=== PATIENT | male | born 1940 | race Caucasian/White ===

== ENCOUNTER 2024-02-28 08:30 | Emergency (ER) | payer MEDICARE, BC, SELFPAY ==
[2024-02-28 08:32] VITALS: BP 138/88
[2024-02-28 08:38] VITALS: BP 140/81
[2024-02-28 08:43] VITALS: BMI 25.6
--- NOTE | 2024-02-28 09:07 | ED.GENMED ---
History of Present Illness
General
Chief Complaint: Fall
Source: patient and spouse
Exam Limitations: none
Time Seen by Provider: 02/28/24 08:38
Nursing documentation reviewed up to this point in time: agreed with
History of Present Illness
History of Present Illness:
83-year-old male with past ministry of hypertension hyperlipidemia and CKD presenting to the emergency department today after he got tripped up walking to his bathroom landed directly on his left shoulder. Did not hit his head did not lose
consciousness no neck pain no numbness or weakness all of his discomfort is to the left shoulder itself. No numbness or weakness otherwise.
Past History
Past History
ED Past Medical History: Other (hyperlipidemia)
ED Past Surgical History: Orthopedic (b/l carpal tunnel)
Patient has exhibited threatening behavior?: No
PSI?: No
Social History
Tobacco: Non-smoker
Alcohol: Occasional
Drug: None
Personal:
Living: with family
Employment: Retired
Review of Systems
Review of Systems
Allergies reviewed?: Yes
All Other Systems: ROS reviewed and negative except as documented in HPI and ROS
Phy Exam
Physical Exam
Physical Exam:
GENERAL: Alert , in no apparent distress
EYE: pupils equal and reactive
NECK: Supple, no significant adenopathy.
ENT: o/p clr, mmm.
CARDIAC: Regular rate and rhythm .
LUNGS: Clear breath sounds bilaterally, no acute respiratory distress, no wheezes/rales/rhonchi
ABDOMEN: Soft, without focal tenderness, no r/g, no cvat
NEUROLOGICAL: Alert and oriented, no focal neuro deficits
SKIN: Warm and dry, skin intact.
MUSCULOSKELETAL: Swelling and bruising to the left shoulder increased discomfort with movement of the left shoulder. Well perfused.
PSYCH: Normal and appropriate interaction.
Course
Orders/Labs/Results
Orders:
Orders
02/28/24 08:50
CR Shoulder, Trauma - Left Urgent
Comment:
Reason For Exam: shoulder pain after fall
02/28/24 09:20
Sling Left-Treatment ONCE
Vital Signs
Initial and Last Documented VS:
Initial Vital Signs
Temp Pulse Resp BP Pulse Ox
98.0 F 100 16 138/88 98
02/28/24 08:32 02/28/24 08:32 02/28/24 08:32 02/28/24 08:32 02/28/24 08:32
Last Documented Vital Signs
Temp Pulse Resp BP Pulse Ox
98.0 F 100 16 139/81 95
02/28/24 08:32 02/28/24 08:32 02/28/24 08:32 02/28/24 09:14 02/28/24 09:30
MDM/Problems Addressed
MDM/Problems Addressed:
83-year-old male presenting to the emergency department today with concerns of left central discomfort after a fall. No evidence of significant injury to the head or neck patient is not on blood thinners. No numbness or weakness neurovascular
intact distally to the upper extremities. X-ray showing proximal humerus fracture. Patient placed in a sling and otherwise will follow-up closely with orthopedics return precautions given. No evidence of additional emergent injury.
*Critical Care Note
Total Time (30-74mins, 75-104mins- exclusive of procedures): Not Applicable
ED Attending Note
-
Portions of this chart may have been created with voice recognition software.� Occasional wrong word or��sound alike� substitutions may have occurred due to the inherent limitations of voice recognition software.
Discharge Plan
Departure
Patient Disposition: Home (Routine Discharge)
Date of Disposition: 02/28/24
Time of Disposition: 10:22
Patient with high blood pressure during this ER visit?: No
Condition: Good
Covid-19: Not Applicable
Discharge Problem:
Closed fracture of left proximal humerus
Instructions: Preventing falls in adults, Upper Arm Fracture ED
Prescriptions:
New
oxycodone 5 mg tablet
5 mg PO Q8H PRN (Reason: Pain) Qty: 7 0RF
No Action
simvastatin 20 MG tablet
20 mg PO QPM
coenzyme [id number] E 1 CAP capsule
1 cap PO DAILY
cholecalciferol (vitamin D3) 1,000 UNITS tablet
1,000 units PO DAILY
multivitamin with folic acid [Tab-A-Sayda] 1 TABLET tablet
1 tab PO DAILY
cyanocobalamin (vitamin B-12) 5,000 MCG tablet,disintegrating
5,000 mcg PO MOWEFRSA
aspirin 81 mg Tablet,Delayed Release (Dr/Ec)
81 mg PO DAILY
levothyroxine [Synthroid] 25 mcg Tablet
25 mcg PO DAILY
amlodipine 10 mg Tablet
10 mg PO DAILY
zinc Tablet,Chewable
1 tab PO
awymisup-kvyr-hwrjo-oreg-capry 100 mg-150 mg- 50 mg-150 mg Capsule
1 cap PO DAILY
Referrals:
Baldev Echavarria MD [Active] - Follow up in 5-7 days
Jakob Cole DO [Family Provider] -
Activity Restrictions/Additional Instructions:
You came to the emergency department today with concerns of shoulder discomfort after a fall. You are found to have a proximal humerus fracture. Please wear the sling until close follow-up with orthopedics. Please take the stronger pain
medication as needed but please be very careful while taking medication, this can cause drowsiness. Return to the emergency department any worsening, new or concerning symptoms.
Interventions
Interventions:
*Risk Screen - Suicide Last Done: 02/28/24 08:44
*Neglect/Abuse Screening Last Done: 02/28/24 08:44
ED- Fall Risk Assessment Last Done: 02/28/24 08:45
*ED COVID-19 Vaccine History Last Done: 02/28/24 08:44
ED-Musculoskeletal Assessment Last Done: 02/28/24 09:16
ED- Neurological Assessment Last Done: 02/28/24 08:45
ED-Skin Assessment Last Done: 02/28/24 08:46
Discharge Date and Time
Print Language: LATVIAN
[2024-02-28 09:14] VITALS: BP 139/81
== END 2024-02-28 10:20 | disposition home or self-care (01) ==
LOC: EMR 08:30
PROVIDERS: EMERGENCY PHYSICIAN Emergency Medicine; FAMILY PHYSICIAN Family Medicine
DX: S42.212A Unspecified displaced fracture of surgical neck of left humerus, initial encounter for closed fracture (principal); W01.0XXA Fall on same level from slipping, tripping and stumbling without subsequent striking against object, initial encounter; I10 Essential (primary) hypertension; E78.5 Hyperlipidemia, unspecified; N18.9 Chronic kidney disease, unspecified
CPT/HCPCS: 99283; 73030

== ENCOUNTER → 2024-03-02 12:37 | Outpatient (REF) | payer MEDICARE, BC, SELFPAY | LOC: RAD 12:37 | PROVIDERS: ATTENDING PHYSICIAN Nurse Practitioner Family; FAMILY PHYSICIAN Family Medicine | DX: S69.91XA Unspecified injury of right wrist, hand and finger(s), initial encounter (principal) | CPT/HCPCS: 73130 ==

== ENCOUNTER 2024-03-03 10:24 | Inpatient (IN) | payer MEDICARE, BC, SELFPAY ==
[2024-03-03] VITALS (12 sets, daily range): BP systolic 127–164; BP diastolic 65–90; PULSE 86; O2SAT 98; BMI 24.4
[2024-03-03 05:14] LABS: % Basophils 0.9 % (0-2); % Eosinophils 1.9 % (0-6); % Immature Granulocytes 0.4 % (0-0.5); % Lymphocytes 12.6 % (20.5-51.1); % Monocytes 10.3 % (1.7-9.3); % Neutrophils 73.9 % (42.2-75.2); Absolute Basophils 0.1 10^3/uL (0-0.2); Absolute Eosinophils 0.1 10^3/uL (0-0.7); Absolute Lymphocytes 0.7 10^3/uL (1.2-3.4); Absolute Monocytes 0.6 10^3/uL (0.1-0.6); Absolute Neutrophils 3.9 10^3/uL (1.4-6.5); Hematocrit 29.7 % (39.0-52.0); Hemoglobin 10.5 g/dL (13.0-18.0); Mean Corp Hgb Conc. 35.4 g/dL (33.0-37.0); Mean Corpuscular Hgb 31.7 pg (27.0-31.0); Mean Corpuscular Volume 89.7 fL (80.0-94.0); Mean Platelet Volume 10.4 fL (7.4-10.4); Nucleated Red Blood Cells % 0 % (-); Platelet Count 171 10^3/uL (130-400); Red Blood Cell Count 3.31 10^6/uL (4.70-6.10); Red Cell Dist. Width 14.1 % (11.5-14.5); White Blood Cell Count 5.3 10^3/uL (4.8-10.8)
[2024-03-03 05:35] LABS: ALT (SGPT) 20 U/L (0-50); AST (SGOT) 33 U/L (17-59); Albumin 3.7 g/dl (3.5-5.0); Alkaline Phosphatase 58 U/L (38-126); Blood Urea Nitrogen 28 mg/dl (9-20); Calcium 8.9 mg/dl (8.4-10.2); Carbon Dioxide 25 mmol/L (22-30); Chloride 103 mmol/L (98-107); Glucose 127 mg/dl (70-99); Potassium 4.5 mmol/L (3.5-5.1); Sodium 137 mmol/L (135-145); Total Bilirubin 1.4 mg/dl (0.2-1.3); Total Protein 5.8 g/dl (6.3-8.2); eGFR 54.17
[2024-03-03 05:40] LABS: Troponin I 0.088 ng/ml
--- NOTE | 2024-03-03 06:04 | ED.GENMED ---
History of Present Illness
General
Chief Complaint: Dizziness
Time Seen by Provider: 03/03/24 06:04
History of Present Illness
History of Present Illness:
HPI: The patient was seen here after a fall and was found to have a left proximal humerus fracture 4 days ago. Since that time, he has been feeling lightheaded and broke out into sweats. He went to his primary care doctor and was found to have a
blood pressure of 106/70 which is low for him. It was recommended that he stop taking his Flomax. He still has a general unwell feeling and now has complete point that he is so weak that he could barely get out of bed. He has been unable to see
orthopedics and does not have an appointment for another 6 days. feels that he still appears somewhat pale but overall his appearance is improved compared to a few days ago when he appeared ashen flores and blue.
EXAM:
GENERAL: The patient appears generally weak and debilitated
CERVICAL SPINE: No midline c-spine tenderness with excellent AROM
HEAD: No evidence of craniofacial trauma
CHEST: No chest wall tenderness, normal heart sounds, however there is ecchymosis noted to the left pectoral region
LUNGS: Equal lung sounds, no respiratory distress
ABDOMEN: No abdominal tenderness, no peritoneal signs, there is rather significant upper abdominal anterior ecchymosis which is nontender
EXTREMITIES: Sling to the left upper extremity with markedly decreased active range of motion due to known proximal humerus fracture.
NEURO: Fair distal strength in all extremities, appropriate mental status, normal speech and language
TIME OF INITIAL ENCOUNTER: 6:20 AM
NUMBER AND COMPLEXITY OF PROBLEMS ADDRESSED AT THE ENCOUNTER
� Chronic conditions affecting care: High blood pressure, hyperlipidemia, hypothyroidism
� Acute Exacerbation and/or Progression of Chronic Illness: This is an acute problem
� Differential Diagnosis includes: ACS, low blood pressure, acute blood loss anemia,
AMOUNT AND/OR COMPLEXITY OF DATA TO BE REVIEWED AND ANALYZED
� I performed an independent evaluation of and my interpretation is:
EKG: Sinus 89, left axis deviation, incomplete right bundle branch block
CT: CT head shows no acute abnormality
X-rays:
Laboratory Studies: White count 5.3, hemoglobin 10.5 down from 14.9 in 2019
Other:
� Review of other/old records: Echo in 2020 showed EF of 70 to 75% with moderate concentric LVH
� Clinical information was obtained by an independent historian: I spoke to the at bedside
� Prescriptions/Medications Considered but not given:
� Further testing considered but not performed: CT of the chest abdomen pelvis with IV contrast was originally ordered however the patient declined IV contrast as patient's renal function has been borderline impaired in the past
RISK OF COMPLICATIONS AND/OR MORBIDITY OR MORTALITY OF PATIENT MANAGEMENT
� Social determinants of health affecting care: Lives at home
� Discussion with other providers: Dr. Tavera for admission
� Escalation of care including admission/observation vs risk of discharge considered: The patient is normotensive to slightly hypertensive. He has an elevated troponin with no old to compare. He denies any significant chest
discomfort. However he does have ongoing lightheadedness and general weakness. He has been doing poorly at home and has been unable to walk at home. He was given IV fluids. Patient states he feels somewhat improved on reassessment at 8:45 AM.
Repeat troponin essentially unchanged from prior. He states he had a stress test earlier this year but has not had a coronary catheterization.
Past History
Past History
ED Past Medical History: Other (hyperlipidemia)
ED Past Surgical History: Orthopedic (b/l carpal tunnel)
Patient has exhibited threatening behavior?: No
PSI?: No
Social History
Tobacco: Non-smoker
Alcohol: Occasional
Drug: None
Personal:
Living: with family
Employment: Retired
Phy Exam
Physical Exam
Physical Exam:
See HPI
Course
Orders/Labs/Results
Orders:
Orders
03/03/24 04:56
Electrocardiogram (*1) Urgent
Reason for Study: Chest Pain
Cardiac Monitoring- Treatment ONCE
EKG- Treatment ONCE
IV Insert/Care/Rem.- Treatment PRN
O2 Therapy [RESP] Urgent
Titrate/Wean O2 to maintain O2 sat greater than (%): 90
Special Instructions: Maintain sats >/=90%
Pulse Ox/spot Check [RESP] Urgent
Quantity: 1
Special Instructions: ON ROOM AIR
03/03/24 05:02
Complete Blood Count/With Diff Urgent
Comprehensive Metabolic Panel Urgent
Free T4 Urgent
TSH Reflex To Free T4 Urgent
Comment: ADD ON
Troponin I Urgent
03/03/24 05:42
CT Head W/o Iv Contrast Urgent
Comment:
Reason For Exam: fall with dizziness
03/03/24 06:29
Add On- LAB Urgent
Tests Added?: tsh reflex fT4
03/03/24 06:45
CT Chest/abd/pel Wo Iv Cont Urgent
Reason For Exam: trauma
0.9% Sodium Chloride 500 ml [Nss] 500 ml IV BOLUS
03/03/24 07:46
Troponin I Urgent
Abnormal Lab Results
03/03/24 03/03/24
05:02 07:46
RBC 3.31 L 10^6/uL
(4.70-6.10)
Hgb 10.5 L g/dL
(13.0-18.0)
Hct 29.7 L %
(39.0-52.0)
MCH 31.7 H pg
(27.0-31.0)
Absolute Lymphs (auto) 0.7 L 10^3/uL
(1.2-3.4)
Lymphocytes % 12.6 L %
(20.5-51.1)
Monocytes % 10.3 H %
(1.7-9.3)
BUN 28 H mg/dl
(9-20)
Glucose 127 H mg/dl
(70-99)
Total Bilirubin 1.4 H mg/dl
(0.2-1.3)
Troponin I 0.088 H* ng/ml 0.084 H* ng/ml
Total Protein 5.8 L g/dl
(6.3-8.2)
TSH (Reflex) 5.20 H uIU/ml
(0.47-4.68)
03/03/24 05:02
03/03/24 05:02
Vital Signs
Initial and Last Documented VS:
Initial Vital Signs
Temp Pulse Resp BP Pulse Ox
98.7 F 85 19 147/85 97
03/03/24 04:54 03/03/24 04:54 03/03/24 04:54 03/03/24 04:54 03/03/24 04:54
Last Documented Vital Signs
Temp Pulse Resp BP Pulse Ox
98.7 F 96 23 136/76 96
03/03/24 04:54 03/03/24 08:30 03/03/24 08:30 03/03/24 08:00 03/03/24 08:30
*Critical Care Note
Total Time (30-74mins, 75-104mins- exclusive of procedures): Not Applicable
ED Attending Note
-
Portions of this chart may have been created with voice recognition software.� Occasional wrong word or��sound alike� substitutions may have occurred due to the inherent limitations of voice recognition software.
Discharge Plan
Departure
Patient Disposition: Admit
Date of Disposition: 03/03/24
Time of Disposition: 08:25
Presentation/result/management discussed w/ accepting MD/DO: Hospitalist
Discharge Problem:
Weakness
Prescriptions:
No Action
simvastatin 20 MG tablet
20 mg PO HS
cholecalciferol (vitamin D3) 1,000 UNITS tablet
1,000 units PO DAILY
cyanocobalamin (vitamin B-12) 5,000 MCG tablet,disintegrating
5,000 mcg PO TU
aspirin 81 mg Tablet,Delayed Release (Dr/Ec)
81 mg PO DAILY
levothyroxine [Synthroid] 25 mcg Tablet
18.75 mcg PO DAILY
Patient Comments:
03/03/24-patient spouse gives him 3/4 of a tablet, brand name only
zinc sulfate 25 mg zinc (110 mg) Tablet
15 mg PO DAILY
potassium 99 mg Tablet
99 mg PO DAILY
magnesium oxide 250 mg magnesium Tablet
250 mg PO QPM
quercetin 500 mg Capsule
500 mg PO DAILY
Arginine-Citrulline Sustain 250-250 mg Tablet Extended Release
1 tab PO BID
Referrals:
Jakob Cole DO [Family Provider] -
Interventions
Interventions:
*Risk Screen - Suicide Last Done: 03/03/24 04:50
*General Assessment Last Done: 03/03/24 04:50
*Neglect/Abuse Screening Last Done: 03/03/24 06:07
ED- Fall Risk Assessment Last Done: 03/03/24 06:07
*ED COVID-19 Vaccine History Last Done: 03/03/24 04:50
ED- Neurological Assessment Last Done: 03/03/24 06:07
ED- Cardiac Assessment Last Done: 03/03/24 06:07
Discharge Date and Time
Print Language: PARAGUAYAN
[2024-03-03] MEDS: NSS 500 IV (07:32)
[2024-03-03 08:33] LABS: Troponin I 0.084 ng/ml
[2024-03-03 08:35] LABS: Free T4 1.15 ng/dl (0.78-2.19)
--- NOTE | 2024-03-03 10:21 | HPS.HSE ---
Addendum entered and electronically signed by Brad Bobby MD 03/03/24 22:39:
Attending Addendum-
I performed a history and physical exam of the patient and discussed his management with the resident. I reviewed the resident's note and agree with the documented findings and plan of care CC/HPI- came to ED due to weakness and ambulatory
dysfunction. Recent DX of left humeal fx s/p fall on 02/27. Currently patient denies pain but progressively getting weaker through week. Complains of worsening ecchymosis on chest and arm. Full 12 point ROS reviewed and negative except as documented
Exam- vitals reviewed in EMR GEN- NAD heart RRR lungs clear abd soft LUE in sling NVI bruising over chest and shoulder. LE no edema Plan:
# LUE Displaced Humeral Fx-
- continue sling and NWB
- for eventual ORIF
- NVI
- ortho c/s
- pain control
# Weakness/Fall
- PT OT
- check CPK
# Anemia-
- monitor CBC closely
# Non ischemic Myocardial Injury
- trend trops
# HLD
- cont simvastatin
# HTN-
- not on BP meds
- cont to monitor add meds as able
# CKD3a-
- avoid NT agents
- repeat BMP in am
# Hypothyroidism
- cont levothyroxine
- check TSH
# BPH
- flomax dc'd as OP
- monitor for retention
DVT-p- lovenox
CODE- Full
Dispo Eventual DC home with
Time spent coordinating care, review of plan of care with resident, personally reviewed previous records in EMR, med rec, labs, radiology, d/w nursing, family �- 79 mins
Original Note:
Family Physician
-
Family Physician: Jakob Cole
Chief Complaint
-
Weakness
History of Present Illness
83-year-old male presented to the ED with weakness. He has a history of hypertension, hyperlipidemia, BPH, CKD stage IIIa. Patient was seen on Wednesday after encountering a fall and x-ray showed left proximal humerus fracture. Since that time he
has been feeling lightheaded and weak in his legs. patient states that he was here in the hospital yesterday for x-ray of his hand, he felt so weak that he could barely walk and had to use a wheelchair to go back to his car. He went to his primary
care doctor and was found to have a blood pressure of 106/70 which is low for him. It was recommended that he stop taking his Flomax. He still has a general unwell feeling and now has complete point that he is so weak that he could barely get out
of bed. He has been unable to see orthopedics and does not have an appointment for another 6 days. He denies chest pain, shortness of breath, abdominal pain, dizziness, headaches, muscle aches, visual changes.
Medical History
Past Medical History
Past Medical History: Reports HTN, Hypercholesterolemia and Hypothyroidism
Additional Past Medical History:
CKD stage III a
Past Surgical History: Reports Orthopedic (laminectomy, carpel tunnel )
Social History
Tobacco: Non-smoker
Alcohol: Occasional
Drug: None
Personal:
Living: With Family
Employment: Retired
Family History
Family History: Not pertinent
Allergies / Home Medications
Allergies reflects when Allergies were last updated in [email or web address].
Home Medications with original date entered in [email or web address]
Allergy/Medication List:
Allergies
Allergy/AdvReac Type Severity Reaction Status Date / Time
No Known Allergies Allergy Verified 03/03/24 04:50
Home Medications
cholecalciferol (vitamin D3) 25 mcg (1,000 unit) tablet 1,000 units PO DAILY Supplement 07/28/19
cyanocobalamin (vitamin B-12) 5,000 mcg disintegrating tablet 5,000 mcg PO TU Supplement 07/28/19
simvastatin 20 mg tablet 20 mg PO HS High Cholesterol 07/28/19
aspirin 81 mg tablet,delayed release 81 mg PO DAILY Blood Clot Prevention/Tx 06/03/22
levothyroxine 25 mcg tablet (Synthroid) 18.75 mcg PO DAILY Supplement 06/03/22
citrulline 250 mg-arginine 250 mg tablet,extended release (Arginine-Citrulline Sustain) 1 tab PO BID Supplement 03/03/24
magnesium oxide 250 mg PO QPM Electrolyte Repletion 03/03/24
potassium 99 mg tablet 99 mg PO DAILY Electrolyte Repletion 03/03/24
quercetin 500 mg capsule 500 mg PO DAILY Supplement 03/03/24
zinc sulfate 25 mg zinc (110 mg) tablet 15 mg PO DAILY Supplement 03/03/24
Review of Systems
-
History Source: Patient
A 12 point ROS was completed and negative except as noted: Yes
Neurological: Reports Weakness
Physical Exam
Vital Signs
Vital Signs
Temp Pulse Resp BP Pulse Ox
98.7 F 98 13 164/88 97
03/03/24 04:54 03/03/24 10:15 03/03/24 10:15 03/03/24 10:00 03/03/24 10:15
Physical Exam
General: No Apparent Distress and Comfortable
HEENT: NormoCephalic and Anicteric
Respiratory: Clear
Cardiac: S1/S2, Regular Rhythm and Other (Radial pulses normal bilaterally)
GI: Soft, Non Tender and Non Distended
Musculoskeletal: No Clubbing, No Cyanosis and No Edema
Skin: Other (Large ecchymosis present in the left pectoral and the epigastric region)
Neuro: AO x 3, No Motor Deficits and No Sensory Deficits
Laboratory Results
-
03/03/24 05:02
Laboratory Results
Total Bilirubin 1.4 mg/dl (0.2-1.3) H 03/03/24 05:02
AST 33 U/L (17-59) 03/03/24 05:02
ALT 20 U/L (0-50) 03/03/24 05:02
Alkaline Phosphatase 58 U/L (38-126) 03/03/24 05:02
Troponin I 0.084 ng/ml H* 03/03/24 07:46
Data Reviewed
-
Diagnostic Radiology: Report Reviewed by me and Discussed with Physician
Lab Data: Labs Reviewed by me and Discussed with Physician
Impression/Plan
-
IMPRESSION:
Left displaced humeral neck fracture
Weakness
Anemia
CKD stage IIIa
Hypertension
PLAN:
Left displaced humeral neck fracture
Admit the patient for observation
Patient is currently on a sling. Large ecchymosis seen in the left pectoral and epigastric region which has worsened
Consult orthopedics
Patient will require a cast.
PT/OT
Weakness
Patient was given IV fluids in the ED.
Patient reports improvement of symptoms
He denies any headache, visual changes, weakness in lower extremities, chest pain, shortness of breath
PT/OT
Anemia
Hemoglobin dropped from 10.5-9.9 today
Repeat H&H
Due to the recent left humeral fracture, suspect vascular injury
Continue to monitor closely
CKD stage IIIa
avoid all nephrotoxic drugs
Creatinine is 1.3
Baseline 1.1
Monitor BMP
Hypertension
blood pressure 166/88 today outpatient
Patient is not taking any home blood pressure medications, stopped a year ago
He only takes amino acid for the past 3 months for BP
Home BP readings are 130s systolic
Will monitor blood pressure
CODE STATUS full code
DVT prophylaxis-Lovenox
[id number]
IMAGING
HEAD CT 03/03/24
No acute intracranial abnormalities.
Findings again seen compatible with diffuse cortical atrophy with minor nonspecific white matter changes as described above.
CT ABDOMEN/PELVIS 03/03/24
1. Subacute fracture of the inferior endplate of L5 with suggestion of previous attempted vertebroplasty.
2. Previous laminectomies at L3 and L4.
3. 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
4. Severe calcific atherosclerotic plaque in the abdominal aorta.
5. Moderate chronic bilateral kidney disease.
6. Small hiatal hernia.
7. Moderate colonic diverticulosis.
8. Chronic granulomatous disease infection.
9. Chronic pancreatitis.
10. Mild to moderate enlargement of the prostate gland with suggestion of chronic urinary bladder outlet obstruction.
RIGHT Hand X ray 03/03/24
No acute osseous abnormality.
LEFT Shoulder X ray 02/28/24
Comminuted, displaced fracture within the left humeral neck.
[2024-03-03 12:13] LABS: Hemoglobin 9.9 g/dL (13.0-18.0)
[2024-03-03 12:15] LABS: Creatine Phosphokinase 377 U/L (55-170)
[2024-03-03 12:43] LABS: Troponin I 0.082 ng/ml
[2024-03-03 14:16] LABS: Creatine Phosphokinase 286 U/L (55-170)
[2024-03-03 16:46] LABS: Hematocrit 31.2 % (39.0-52.0); Hemoglobin 10.8 g/dL (13.0-18.0)
[2024-03-03] MEDS: NSS 1000 IV (17:19)
[2024-03-03] MEDS: LOVENOX 40 MG SC (17:20)
[2024-03-03] MEDS: MAGNESIUM OXIDE 250 MG PO (17:20)
--- NOTE | 2024-03-03 18:35 | W.PN.UPDATE ---
Update Note
Progress Note Update
Full consult dictated. 83 yo male fell Wednesday and fractured his left proximal humerus. Was to be seen in the ortho office next week. Admitted due to lightheadedness for observation. Evaluation of the left upper extremity reveals significant
ecchymosis about the shoulder, upper arm and chest wall. Axillary nerve sensation intact. 2+ radial pulse. NVI distally. Xray as noted with displaced proximal humerus fracture. Hgb stable. Discussed treatment options with the patient. Would
recommend ORIF of the proximal humerus next week. If still admitted, will plan for Wednesday surgery with Dr. Beck. Will discuss with Dr. Beck when he returns from vacation later this weekend. If discharged home may still plan for surgery on
Wednesday. Will follow.
[2024-03-03] MEDS: LIPITOR 10 MG PO (21:12)
[2024-03-04] MEDS: NSS 1000 IV (04:28)
[2024-03-04] MEDS: SYNTHROID 25 MCG PO (05:23)
[2024-03-04 06:00] VITALS: BMI 24.9
[2024-03-04 07:45] VITALS: BP 151/85
[2024-03-04 08:27] LABS: Blood Urea Nitrogen 20 mg/dl (9-20); Calcium 7.8 mg/dl (8.4-10.2); Carbon Dioxide 23 mmol/L (22-30); Chloride 105 mmol/L (98-107); Estimated Creatinine Clearance 53 ml/min; Glucose 84 mg/dl (70-99); Potassium 3.8 mmol/L (3.5-5.1); Sodium 138 mmol/L (135-145); eGFR > 60.00
[2024-03-04 08:28] LABS: % Basophils 0.7 % (0-2); % Eosinophils 2.2 % (0-6); % Immature Granulocytes 0.4 % (0-0.5); % Lymphocytes 13.9 % (20.5-51.1); % Monocytes 8.4 % (1.7-9.3); % Neutrophils 74.4 % (42.2-75.2); Absolute Eosinophils 0.1 10^3/uL (0-0.7); Absolute Lymphocytes 0.6 10^3/uL (1.2-3.4); Absolute Monocytes 0.4 10^3/uL (0.1-0.6); Absolute Neutrophils 3.4 10^3/uL (1.4-6.5); Hematocrit 29.2 % (39.0-52.0); Hemoglobin 10.1 g/dL (13.0-18.0); Mean Corp Hgb Conc. 34.6 g/dL (33.0-37.0); Mean Corpuscular Volume 92.4 fL (80.0-94.0); Mean Platelet Volume 10.8 fL (7.4-10.4); Nucleated Red Blood Cells % 0 % (-); Platelet Count 161 10^3/uL (130-400); Red Blood Cell Count 3.16 10^6/uL (4.70-6.10); Red Cell Dist. Width 13.9 % (11.5-14.5); Troponin I 0.086 ng/ml; White Blood Cell Count 4.5 10^3/uL (4.8-10.8)
--- NOTE | 2024-03-04 08:44 | W.PN.HOSP.TC ---
Addendum entered and electronically signed by Brad Bobby MD 03/04/24 15:31:
Attending Addendum-
I saw and evaluated the patient. I reviewed the resident�s note and agree with findings and plan as documented in the resident�s note. - S- denies weakness and pain in LUE. Denies dizziness, wants to g home and agreeable to plan. Full 12 point ROS
reviewed and negative except as documented Exam- vitals reviewed in EMR GEN- NAD heart RRR lungs clear abd soft LUE in sling NVI bruising over chest and shoulder. LE no edema Plan:
# Left Displaced Humeral Fx-
- continue sling and NWB
- for possible ORIF
- NVI
- ortho input appreciated OP ORIF acceptable with Dr. Beck on 03/07
- pain control
# Weakness/Fall
- PT OT
# Anemia-
- HB stable
- monitor CBC closely
# Non ischemic Myocardial Injury
- trend trops
# HLD
- cont simvastatin
# HTN-
- not on BP meds
- cont to monitor add meds as able
# CKD3a-
- avoid NT agents
# Hypothyroidism
- cont levothyroxine
- check TSH as OP
# BPH
- flomax dc'd as OP
- monitor for retention
DVT-p- lovenox
CODE- Full
Dispo-DC home with today
Time spent coordinating care, review of plan of care with resident, personally reviewed previous records in EMR, LA planning transition of care med rec, labs, radiology, d/w nursing, family and ortho�- 36 mins
Original Note:
Today's Communication/Plan
-
ORIF on wednesday with Dr Beck.
Continue follow-up with outpatient orthopedic
Assessment / Plan
Assessment / Plan
IMPRESSION:
Left displaced humeral neck fracture
Weakness
Anemia
CKD stage IIIa
Hypertension
PLAN:
Left displaced humeral neck fracture
Admit the patient for observation
Patient is currently on a sling. Large ecchymosis seen in the left pectoral and epigastric region which has worsened
Consult orthopedics
Plan ORIF on Wednesday with Dr. Beck.
Patient is wearing a sling. Non weight bearing.
Plan to discharge today
Weakness-- improving
Patient was given IV fluids in the ED.
Patient reports improvement of symptoms
He denies any headache, visual changes, weakness in lower extremities, chest pain, shortness of breath
PT/OT
Anemia
Hemoglobin dropped from 10.5-9.9 today
Repeat H&H
Due to the recent left humeral fracture, suspect vascular injury
Continue to monitor closely
CKD stage IIIa
avoid all nephrotoxic drugs
Creatinine is 1.3
Baseline 1.1
Monitor BMP
Hypertension
blood pressure 166/88 today outpatient
Patient is not taking any home blood pressure medications, stopped a year ago
He only takes amino acid for the past 3 months for BP
Home BP readings are 130s systolic
Will monitor blood pressure
Hypothyroidism
Continue Synthroid
BPH
Flomax discontinued outpatient
Monitor urinary retention\\
CODE STATUS full code
DVT prophylaxis-Lovenox
[id number]
IMAGING
HEAD CT 03/03/24
No acute intracranial abnormalities.
Findings again seen compatible with diffuse cortical atrophy with minor nonspecific white matter changes as described above.
CT ABDOMEN/PELVIS 03/03/24
1. Subacute fracture of the inferior endplate of L5 with suggestion of previous attempted vertebroplasty.
2. Previous laminectomies at L3 and L4.
3. 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
4. Severe calcific atherosclerotic plaque in the abdominal aorta.
5. Moderate chronic bilateral kidney disease.
6. Small hiatal hernia.
7. Moderate colonic diverticulosis.
8. Chronic granulomatous disease infection.
9. Chronic pancreatitis.
10. Mild to moderate enlargement of the prostate gland with suggestion of chronic urinary bladder outlet obstruction.
RIGHT Hand X ray 03/03/24
No acute osseous abnormality.
LEFT Shoulder X ray 02/28/24
Comminuted, displaced fracture within the left humeral neck.
Anticipated Discharge: Today
Subjective/Interval History
-
Date of Service: March 04, 2024
patient denies any shortness of breath, chest pain, dizziness.
Objective Data
-
Labs:
Laboratory Results
03/04/24
05:34
WBC 4.5 L
Hgb 10.1 L
Hct 29.2 L
Plt Count 161
Sodium 138
Potassium 3.8
Chloride 105
Carbon Dioxide 23
BUN 20
Creatinine 1.0
Glucose 84
Calcium 7.8 L
Vital Signs:
Vital Signs
Temp Pulse Resp BP Pulse Ox
97.4 F 92 18 151/85 98
03/04/24 07:45 03/04/24 07:45 03/04/24 07:45 03/04/24 07:45 03/04/24 07:45
I&O
03/03/24 03/04/24 03/05/24
06:59 06:59 06:59
Intake Total 1200 / 1200
Output Total 2575 / 2575
Balance -1375 / -1375
Review of Systems
-
All other systems: Reviewed and negative
Physical Exam
-
General: Comfortable
HEENT: Normocephalic and Atraumatic
Respiratory: Clear to Auscultation
Cardiac: Regular Rhythm
Musculoskeletal: No Edema
Skin: Other (ecchymosis in the left pectoral and epigastric region)
Neuro: AO x 3
Data Reviewed
-
Labs: Labs Reviewed by me and Discussed with Physician
--- NOTE | 2024-03-04 09:16 | W.PN.UPDATE ---
Update Note
Progress Note Update
Patient sitting up comfortably in bed this morning. He reports that his shoulder pain is well controlled. He has maintained his sling and reports that the arm feel better with wearing the sling however he is having some neck pain
Directed exam of left upper extremity with significant diffuse ecchymosis about the shoulder, upper arm, and chest wall. Axillary nerve sensation intact. 2+ radial pulse. NVI distally. Sling in place
Left displaced proximal humerus fracture
-Tenative plan for ORIF left proximal humerus on Wednesday with Dr. Beck
-Patient may be discharged home if stable and can return on Wednesday for surgery
-NWB to TIM
-Maintain sling. May loosen sling when seated to ease neck pain
-Continue pain medications as needed. May use ice for discomfort as well
-Will continue to follow
[2024-03-04] MEDS: ASPIR LOW (ENTERIC COATED) 81 MG PO (10:19)
[2024-03-04] MEDS: VITAMIN D3 (cholecalciferol) 25 MCG PO (10:20)
[2024-03-04] MEDS: ZINC SULFATE 220 MG PO (10:20)
[2024-03-04 15:28] VITALS: BP 148/86
--- NOTE | 2024-03-04 15:42 | CM ---
Alert awake oriented patient who lives with his Dahiana who lives in a 2 story condo with 2 step to enter and 15 steps to bed and bathroom. 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 He has a loft arm
sling. He will be dc today and return [facility] for surgery,
[facility] hx /No SNF hx
Hr uses a walker
Pharmacy [facility]
PCP DR Morton
PLAN Home needs
--- NOTE | 2024-03-04 15:52 | W.DCSUMMARY ---
Addendum entered and electronically signed by Brad Bobby MD 03/04/24 22:59:
Read, reviewed, and agree. See same day progress note for additional details.
Jostin Bobby MD
Original Note:
Documented by User: Cindy Hawkins MD, Resident 03/04/24 16:04
Discharge Summary
Discharge Data
Date of Admission: 03/03/24
Date of Discharge: 03/04/24
-
Pending Results: No
Hospital Course
Discharging Physician : Dr Cindy Hawkins, Dr Brad Bobby
Disposition : HOME
Primary care physician : Jakob Cole DO
Principal Discharge diagnosis :
Left displaced humeral fracture
Weakness/fall
Anemia
Chronic Discharge diagnosis :
Hyperlipidemia
Hypertension
BPH
Hypothyroidism
Hospital Course :
Nile is a 83-year-old male who presented to the ED with weakness/lightheadedness after a fall. Patient encountered a fall on 02/27, x-ray showed left displaced humeral fracture. He was sent home on a sling. The next day he experienced
lightheaded/dizziness and weakness in his legs with walking. In the ED he was given IV fluids and patient was admitted for observation. On physical exam patient is wearing sling in his left arm, not weightbearing, concerns of large ecchymosis
which was seen on his left pectoral and epigastric region. Ortho was consulted and they reassured of no vascular injuries with normal axillary pulses and radial pulses. Ortho recommended ORIF on 03/07/2024, with Dr. Beck.
On the day of discharge patient is hemodynamically stable. He denies feeling dizziness, lightheadedness. There was a slight drop in his hemoglobin this could possibly be because of the IV fluids. Repeat hemoglobin is 10.8>9.9. Patient was
advised to follow-up with orthopedics. All other home medication were continued except Flomax which was discontinue outpatient.
Important imaging findings :
HEAD CT 03/03/24
No acute intracranial abnormalities.
Findings again seen compatible with diffuse cortical atrophy with minor nonspecific white matter changes as described above.
CT ABDOMEN/PELVIS 03/03/24
1. Subacute fracture of the inferior endplate of L5 with suggestion of previous attempted vertebroplasty.
2. Previous laminectomies at L3 and L4.
3. 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
4. Severe calcific atherosclerotic plaque in the abdominal aorta.
5. Moderate chronic bilateral kidney disease.
6. Small hiatal hernia.
7. Moderate colonic diverticulosis.
8. Chronic granulomatous disease infection.
9. Chronic pancreatitis.
10. Mild to moderate enlargement of the prostate gland with suggestion of chronic urinary bladder outlet obstruction.
RIGHT Hand X ray 03/03/24
No acute osseous abnormality.
LEFT Shoulder X ray 02/28/24
Comminuted, displaced fracture within the left humeral neck.
Procedure findings : none
Discharge Plan
-
Patient Disposition: Home (Routine Discharge)
Discharge Diagnosis/Procedures: Displaced left displaced humeral neck fracture
Weakness/fall
Anemia
CKD stage III a
Condition: Good
Diet: No restrictions
Activity: No restrictions
Driving Restrictions: As prior to admission
Bathing Restrictions: None
Referrals:
Jakob Cole DO [Family Provider] - in less than 1 week
Toro Beck MD [Active] - in two to three days
Additional Discharge Medication Instructions: Non weight bearing
ORIF to be scheduled on 03/07/[address] Beck
Prescriptions:
Continued
simvastatin 20 MG tablet
20 mg PO HS
cholecalciferol (vitamin D3) 1,000 UNITS tablet
1,000 units PO DAILY
cyanocobalamin (vitamin B-12) 5,000 MCG tablet,disintegrating
5,000 mcg PO TU
aspirin 81 mg Tablet,Delayed Release (Dr/Ec)
81 mg PO DAILY
levothyroxine [Synthroid] 25 mcg Tablet
18.75 mcg PO DAILY
Patient Comments:
03/03/24-patient spouse gives him 3/4 of a tablet, brand name only
zinc sulfate 25 mg zinc (110 mg) Tablet
15 mg PO DAILY
potassium 99 mg Tablet
99 mg PO DAILY
magnesium oxide 250 mg magnesium Tablet
250 mg PO QPM
quercetin 500 mg Capsule
500 mg PO DAILY
Arginine-Citrulline Sustain 250-250 mg Tablet Extended Release
1 tab PO BID
Discharge Orders:
Discharge Patient (As Directed); Ordered 03/04/24
Ordered By: Cindy Hawkins
Discharge Date and Time
Discharge Date/Time: 03/04/24 15:30
Print Language: BENINESE

Documented by User: Brad Bobby MD 03/04/24 22:58
Discharge Summary
Discharge Data
Date of Admission: 03/03/24
Date of Discharge: 03/04/24
Discharge Plan
-
Patient Disposition: Home (Routine Discharge)
Discharge Diagnosis/Procedures: Displaced left displaced humeral neck fracture
Weakness/fall
Anemia
CKD stage III a
Condition: Good
Diet: No restrictions
Activity: No restrictions
Driving Restrictions: As prior to admission
Bathing Restrictions: None
Referrals:
Jakob Cole DO [Family Provider] - in less than 1 week
Toro Beck MD [Active] - in two to three days
Additional Discharge Medication Instructions: Non weight bearing
ORIF to be scheduled on 03/07/[address] Beck
Prescriptions:
Continued
simvastatin 20 MG tablet
20 mg PO HS
cholecalciferol (vitamin D3) 1,000 UNITS tablet
1,000 units PO DAILY
cyanocobalamin (vitamin B-12) 5,000 MCG tablet,disintegrating
5,000 mcg PO TU
aspirin 81 mg Tablet,Delayed Release (Dr/Ec)
81 mg PO DAILY
levothyroxine [Synthroid] 25 mcg Tablet
18.75 mcg PO DAILY
Patient Comments:
03/03/24-patient spouse gives him 3/4 of a tablet, brand name only
zinc sulfate 25 mg zinc (110 mg) Tablet
15 mg PO DAILY
potassium 99 mg Tablet
99 mg PO DAILY
magnesium oxide 250 mg magnesium Tablet
250 mg PO QPM
quercetin 500 mg Capsule
500 mg PO DAILY
Arginine-Citrulline Sustain 250-250 mg Tablet Extended Release
1 tab PO BID
Discharge Orders:
Discharge Patient (As Directed); Ordered 03/04/24
Ordered By: Cindy Hawkins
Discharge Date and Time
Discharge Date/Time: 03/04/24 15:30
Print Language: BENINESE
== END 2024-03-04 15:30 | disposition home or self-care (01) | DRG 563 ==
LOC: 3 WEST ACU 10:24
PROVIDERS: Student in an Organized Health Care Education/Training Program; ADMITTING PHYSICIAN Family Medicine; CONSULT PHYSICIAN Orthopaedic Surgery; EMERGENCY PHYSICIAN Emergency Medicine; FAMILY PHYSICIAN Family Medicine
DX: S42.292A Other displaced fracture of upper end of left humerus, initial encounter for closed fracture (principal); I5A Non-ischemic myocardial injury (non-traumatic); K86.1 Other chronic pancreatitis; R42 Dizziness and giddiness; R53.1 Weakness; E78.49 Other hyperlipidemia; E78.00 Pure hypercholesterolemia, unspecified; E03.9 Hypothyroidism, unspecified; S20.219A Contusion of unspecified front wall of thorax, initial encounter; I12.9 Hypertensive chronic kidney disease with stage 1 through stage 4 chronic kidney disease, or unspecified chronic kidney disease; N18.31 Chronic kidney disease, stage 3a; K44.9 Diaphragmatic hernia without obstruction or gangrene; K57.30 Diverticulosis of large intestine without perforation or abscess without bleeding; D71 Functional disorders of polymorphonuclear neutrophils; N32.0 Bladder-neck obstruction; D64.9 Anemia, unspecified; R26.2 Difficulty in walking, not elsewhere classified; N40.0 Benign prostatic hyperplasia without lower urinary tract symptoms; W01.0XXA Fall on same level from slipping, tripping and stumbling without subsequent striking against object, initial encounter; Y93.9 Activity, unspecified; Y92.009 Unspecified place in unspecified non-institutional (private) residence as the place of occurrence of the external cause; Z79.82 Long term (current) use of aspirin; Z79.890 Hormone replacement therapy
CPT/HCPCS: 70450; 71250; 73130; 74176; 80048; 80053; 82550; 84439; 84443; 84484; 85014; 85018; 85025; 93005; 97116; 97162; 97166; 97530; 99285

== ENCOUNTER 2024-03-07 08:22 | Day surgery (SDC) | payer MEDICARE, BC, SELFPAY ==
[2024-03-07] VITALS (10 sets, daily range): BP systolic 119–144; BP diastolic 72–87; BMI 24.0
[2024-03-07] MEDS: NORMOSOL-R/PLASMALYTE-A 1000 IV (09:05)
[2024-03-07] MEDS: CELEBREX 200 MG PO (09:26)
[2024-03-07] MEDS: TYLENOL 1000 MG PO (09:26)
== END 2024-03-07 16:27 | disposition home or self-care (01) ==
LOC: SDS 08:22
PROVIDERS: ATTENDING PHYSICIAN Orthopaedic Surgery
DX: S42.202A Unspecified fracture of upper end of left humerus, initial encounter for closed fracture (principal); W19.XXXA Unspecified fall, initial encounter
CPT/HCPCS: 23615; 73060; 76000; C1713; C1776

== ENCOUNTER → 2024-05-15 13:28 | Outpatient (REF) | payer MEDICARE, BC, SELFPAY | LOC: RAD 13:28 | PROVIDERS: ATTENDING PHYSICIAN Surgery Vascular Surgery; FAMILY PHYSICIAN Family Medicine | DX: I65.22 Occlusion and stenosis of left carotid artery (principal) | CPT/HCPCS: 93880 ==

== ENCOUNTER → 2024-09-25 14:37 | Outpatient (REF) | payer MEDICARE, BC, SELFPAY | LOC: RAD 14:37 | PROVIDERS: ATTENDING PHYSICIAN Family Medicine | DX: M54.50 Low back pain, unspecified (principal); M25.552 Pain in left hip | CPT/HCPCS: 72110; 73502 ==

== ENCOUNTER → 2024-10-29 08:45 | Outpatient (REF) | payer MEDICARE, BC, SELFPAY | LOC: PAVMRI 08:45 | PROVIDERS: ATTENDING PHYSICIAN Family Medicine; OTHER PHYSICIAN Neurological Surgery; REFERRING PHYSICIAN Orthopaedic Surgery | DX: M51.360 Other intervertebral disc degeneration, lumbar region with discogenic back pain only (principal); Z98.890 Other specified postprocedural states | CPT/HCPCS: 72148 ==

== ENCOUNTER 2024-11-15 09:07 | Inpatient (IN) | payer MEDICARE, BC, SELFPAY ==
--- NOTE | 2024-10-17 13:55 | CM ---
CM reviewed medical records. CM spoke with patient via phone. CM confirmed demographics. 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 Patient further stated that he does have other family to assist as needed. Patient
would prefer [facility] as he has been known to them in the past. Patient does have a cane and walker. CM discussed pre-operative instructions and encouraged patient to obtained recommended DME. Patient stated he did not see that
listing in the educational packet, but will double check and call CM with questions.
Patient is active with his PCP. Patient uses [facility] on [address].
CM explained that patient will receive call from frog shaker who will schedule his PAT appointments.
CM provided patient with contact information and encouraged patient to contact this CM as needed.
PLAN: HOME WITH [facility].
[2024-10-25 13:51] LABS: Hematocrit 41.8 % (39.0-52.0); Hemoglobin 14.1 g/dL (13.0-18.0); Mean Corp Hgb Conc. 33.7 g/dL (33.0-37.0); Mean Corpuscular Hgb 31.7 pg (27.0-31.0); Mean Corpuscular Volume 93.9 fL (80.0-94.0); Platelet Count 171 10^3/uL (130-400); Red Blood Cell Count 4.45 10^6/uL (4.70-6.10); Red Cell Dist. Width 13.2 % (11.5-14.5)
[2024-10-25 14:07] VITALS: BMI 23.0
[2024-10-25 14:13] LABS: Glycohemoglobin (HgbA1c) 5.5 % (4.0-5.6)
[2024-10-25 14:16] LABS: ALT (SGPT) 19 U/L (0-50); AST (SGOT) 24 U/L (17-59); Albumin 4.4 g/dl (3.5-5.0); Alkaline Phosphatase 61 U/L (38-126); Blood Urea Nitrogen 27 mg/dl (9-20); Calcium 9.7 mg/dl (8.4-10.2); Carbon Dioxide 26 mmol/L (22-30); Chloride 103 mmol/L (98-107); Estimated Creatinine Clearance 35 ml/min; Glucose 120 mg/dl (70-99); Potassium 4.7 mmol/L (3.5-5.1); Sodium 140 mmol/L (135-145); Total Bilirubin 1.2 mg/dl (0.2-1.3); Total Protein 6.5 g/dl (6.3-8.2); eGFR 45.34
[2024-10-25 14:42] VITALS: BMI 23.0
[2024-11-15] VITALS (22 sets, daily range): BP systolic 108–155; BP diastolic 64–93; PULSE 88; O2SAT 97–98; BMI 23.0
[2024-11-15] MEDS: NORMOSOL-R/PLASMALYTE-A 1000 IV ×2 (09:33→16:53)
[2024-11-15] MEDS: TYLENOL 650 MG PO ×4 (09:47→23:52)
[2024-11-15] MEDS: CELEBREX 200 MG PO (09:47)
--- NOTE | 2024-11-15 10:14 | W.PN.UPDATE ---
Update Note
Progress Note Update
L RIA 11/15/24
DVT ppx ASA
[2024-11-15] MEDS: ROXICODONE 5 MG PO (12:51)
[2024-11-15] MEDS: ANCEF 5 IV (16:53)
[2024-11-15] MEDS: ASPIRIN 325 MG PO (16:53)
[2024-11-15] MEDS: COLACE 100 MG PO (20:52)
[2024-11-15] MEDS: BACTROBAN 2% OINTMENT 1 APPLIC NASAL (20:52)
[2024-11-15] MEDS: SENOKOT 17.2 MG PO (20:52)
[2024-11-15] MEDS: DECADRON 4 MG IV (20:53)
[2024-11-15] MEDS: NEURONTIN 300 MG PO (21:05)
[2024-11-15] MEDS: LIPITOR 10 MG PO (21:05)
[2024-11-16] MEDS: ANCEF 5 IV (00:01)
[2024-11-16 03:00] VITALS: BP 126/75
[2024-11-16] MEDS: TYLENOL 650 MG PO ×3 (03:03→11:26)
[2024-11-16 04:59] VITALS: BMI 24.6
[2024-11-16] MEDS: SYNTHROID 18.75 MCG PO (06:05)
[2024-11-16 07:00] VITALS: BP 116/72
[2024-11-16] MEDS: SENOKOT 17.2 MG PO (08:12)
[2024-11-16] MEDS: MAG-TAB SR 84 MG PO (08:13)
[2024-11-16] MEDS: DECADRON 4 MG IV (08:13)
[2024-11-16] MEDS: ASPIRIN 325 MG PO (08:13)
[2024-11-16] MEDS: COLACE 100 MG PO (08:13)
[2024-11-16] MEDS: BACTROBAN 2% OINTMENT 1 APPLIC NASAL (08:14)
--- NOTE | 2024-11-16 08:21 | CM ---
Addendum entered by Shazia Rubin RN 11/16/24 10:07:
Patient has been accepted by [facility].
PLAN: [facility]
Fax [phone]
Addendum entered by Shazia Rubin RN 11/16/24 08:36:
CM met with patient. Patient is looking forward to discharge. Cm confirmed patient's will be able to provide transportation and support.
Original Note:
CM reviewed medical records. Patient has been referred to [facility] via [facility]. CM is awaiting acceptance.
--- NOTE | 2024-11-16 11:03 | W.PN.ORTHO ---
Today's Communication / Plan
-
d/c
Assessment
.
Distal Motor Intact: Yes
Dressing:
Clean, dry and intact.
Assessment:
*Prevention of post-op complications re orthostasis and constipation/ileus --discussed and outlined in d/c instructions: TEDs stockings, minimizing opioid, adequate hydration and adhering to bowel regimen*
Plan
.
Surgery / Date: L RIA 11/15/24
DVT Prophylaxis: Aspirin
Activity:
Out of bed.
PT/OT
Discharge Plan: Home w/ VN
Subjective
.
.:
Patient resting comfortably.
Vital Signs and Labs
.
Vital Signs and Labs:
Lab Results
10/25/24 12:48
10/25/24 12:48
Temp Pulse Resp BP Pulse Ox
97.8 F 80 16 116/72 97
11/16/24 07:00 11/16/24 07:00 11/16/24 07:00 11/16/24 07:00 11/16/24 07:00
Non-invasive Hgb result: 12.7
Physical Exam
-
HEENT: No pallor, cyanosis, or jaundice. Throat clear.
NECK: Supple. No JVD.
RESPIRATORY: Lungs clear to auscultation.
CVS: S1, S2 normal. RRR.� No murmur, rub or gallop.
ABDOMEN: Soft, non-tender. No distension. BS+/normal.
EXTREMITIES: strength equal, no calf pain with palpation
CHEMICAL LAB SUPERVISOR: AOx3. No focal deficits. ticket worker grossly intact
--- NOTE | 2024-11-16 11:13 | W.DS.TRANS ---
DC Summary - Practice Professional
-
Discharge Instructions:
Sleep Apnea Risk Low
Discharge Diagnosis/Procedures L RIA 11/15/24
Diet As tolerated
Activity With Walker,With assistance
Additional Activity Adequate hydration, minimize Oxy and wear TEDs
stockings to prevent low blood pressure/
dizziness
Driving Restrictions No driving
Bathing Restrictions OK to Shower
Other Services VN,PT,OT
Instructions:
Stand-Alone Forms: Total Hip/Knee Replacement D/C
Changes to Home Medications: Yes
Discharge Medications:
DC Medications w/original date entered in [employer]
simvastatin 20 mg tablet 20 mg PO HS High Cholesterol 07/28/19
levothyroxine 25 mcg tablet (Synthroid) 18.75 mcg PO DAILY Supplement 06/03/22
Fish Oil 1 cap PO DAILY 10/24/24
Joint Health 1 unit PO DAILY 10/24/24
Superbeets 1 tab PO BID 10/24/24
Zinc And Copper 1 tab PO DAILY 10/24/24
coenzyme Q10 100 mg capsule (CoQ-10) 100 mg PO DAILY 10/24/24
magnesium oxide 400 mg PO DAILY 10/24/24
psyllium 1 packet PO DAILY 10/24/24
dexamethasone 4 mg tablet 4 mg PO BID inflammation #6 tabs 10/25/24
gabapentin 300 mg capsule 300 mg PO HS sleep/pain #10 caps 10/25/24
mupirocin 2 % topical ointment 1 applic topical BID infection prevention #1 tube 10/25/24
ondansetron 4 mg disintegrating tablet 4 mg PO Q6H PRN n/v #20 tabs 10/25/24
tamsulosin 0.4 mg capsule 0.4 mg PO HS #7 caps 10/25/24
acetaminophen 325 mg tablet (Tylenol) 650 mg (2 x 325 mg) PO QID #0 tabs 11/16/24
aspirin 325 mg tablet 325 mg PO DAILY blood clot prevention #1 tab 11/16/24
docusate sodium 100 mg capsule (Colace) 100 mg PO BID stool softner #1 cap 11/16/24
famotidine 20 mg tablet 20 mg PO HS GI prophylaxis #1 tab 11/16/24
magnesium hydroxide 400 mg/5 mL oral suspension (Milk of Magnesia) 30 ml PO HS PRN constipation #1 mL 11/16/24
oxycodone 5 mg tablet 5 mg PO Q6H PRN 1/2 tab moderate pain, 1 tab severe pain #30 tabs 11/16/24
sennosides 8.6 mg tablet (Senokot) 17.2 mg (2 x 8.6 mg) PO BID laxative #2 tabs 11/16/24
Home Medication Changes
dexamethasone 4 mg tablet 4 mg PO BID inflammation #6 tabs 10/25/24
gabapentin 300 mg capsule 300 mg PO HS sleep/pain #10 caps 10/25/24
mupirocin 2 % topical ointment 1 applic topical BID infection prevention #1 tube 10/25/24
ondansetron 4 mg disintegrating tablet 4 mg PO Q6H PRN n/v #20 tabs 10/25/24
tamsulosin 0.4 mg capsule 0.4 mg PO HS #7 caps 10/25/24
acetaminophen 325 mg tablet (Tylenol) 650 mg (2 x 325 mg) PO QID #0 tabs 11/16/24
aspirin 325 mg tablet 325 mg PO DAILY blood clot prevention #1 tab 11/16/24
docusate sodium 100 mg capsule (Colace) 100 mg PO BID stool softner #1 cap 11/16/24
famotidine 20 mg tablet 20 mg PO HS GI prophylaxis #1 tab 11/16/24
magnesium hydroxide 400 mg/5 mL oral suspension (Milk of Magnesia) 30 ml PO HS PRN constipation #1 mL 11/16/24
oxycodone 5 mg tablet 5 mg PO Q6H PRN 1/2 tab moderate pain, 1 tab severe pain #30 tabs 11/16/24
sennosides 8.6 mg tablet (Senokot) 17.2 mg (2 x 8.6 mg) PO BID laxative #2 tabs 11/16/24
Pending Results: No
[2024-11-16 11:30] VITALS: BP 137/70
[2024-11-16 12:03] VITALS: BP 134/68; PULSE 87; O2SAT 96
[2024-11-16 13:40] VITALS: BP 116/68
== END 2024-11-16 14:48 | disposition home health service (06) | DRG 470 ==
LOC: 2 SOUTH 09:07
PROVIDERS: ADMITTING PHYSICIAN Orthopaedic Surgery; FAMILY PHYSICIAN Family Medicine; REFERRING PHYSICIAN Internal Medicine Cardiovascular Disease
PROC: 0SRB0JA Replacement of Left Hip Joint with Synthetic Substitute, Uncemented, Open Approach (ICD-10-PCS; 2024-11-15)
DX: M16.12 Unilateral primary osteoarthritis, left hip (principal); I25.10 Atherosclerotic heart disease of native coronary artery without angina pectoris; N18.30 Chronic kidney disease, stage 3 unspecified; I12.9 Hypertensive chronic kidney disease with stage 1 through stage 4 chronic kidney disease, or unspecified chronic kidney disease; E78.5 Hyperlipidemia, unspecified; E03.9 Hypothyroidism, unspecified; M54.16 Radiculopathy, lumbar region
CPT/HCPCS: 36415; 73502; 80053; 83036; 85027; 87070; 97110; 97116; 97162; 97166; 97530; 97535; C1713; C1776

== ENCOUNTER → 2025-05-28 13:49 | Outpatient (REF) | payer MEDICARE, BC, SELFPAY | LOC: DHVS 13:49 | PROVIDERS: ATTENDING PHYSICIAN Registered Nurse | DX: I65.22 Occlusion and stenosis of left carotid artery (principal) | CPT/HCPCS: 93880 ==